=== PATIENT | male | born 1970 | race Caucasian/White ===

== ENCOUNTER 2020-10-02 23:30 | Inpatient (IN) | payer OTHER, SELFPAY ==
[~2020-10-02] VITALS: Ht 172.7 cm; Wt 115.7 kg
[2020-10-02 23:41] VITALS: BP 104/83
--- NOTE | 2020-10-03 00:30 | NUR ---
SEEN AND EXAMINED BY JENS WITH ORDERS AND CARRIED OUT
[2020-10-03 01:28] LABS: HEMATOCRIT 46.9 % (36-52); HEMOGLOBIN 16.2 g/dL (12.0-18.0); LYMPHOCYTES # (AUTO) 0.8 K/uL (2.0-11.5); LYMPHOCYTES % (AUTO) 6.1 % (20.5-51.1); MEAN CORPUSCULAR HEMOGLOBIN 31 pg (27-31); MEAN CORPUSCULAR HGB CONC 35 g/dL (33-37); MEAN CORPUSCULAR VOLUME 88.4 fL (80-94); MONOCYTES # (AUTO) 0.8 K/uL (0.8-1.0); MONOCYTES % (AUTO) 6.1 % (1.7-9.3); NEUTROPHILS # (AUTO) 10.9 K/uL (1.8-7.7); NEUTROPHILS % (AUTO) 87.8 % (42.2-75.2); PLATELET COUNT (AUTO) 317 K/uL (140-450); RED CELL DISTRIBUTION WIDTH 13.2 % (11.6-13.7); WHITE BLOOD COUNT (AUTO) 12.4 K/uL (4.8-10.8)
[2020-10-03 01:44] LABS: ANION GAP 16.5 (8-16); CARBON DIOXIDE 25.4 mmol/L (21-32); CREATININE 1.1 mg/dL (0.6-1.3); TOTAL BILIRUBIN 0.8 mg/dL (0.0-1.0)
[2020-10-03 02:06] LABS: POTASSIUM 2.9 mmol/L (3.5-5.1)
--- NOTE | 2020-10-03 02:10 | NUR ---
EKG PERFORMED IN TENT WITH SCREEN. EKG READS SINUS TACHYCARDIA @ 108
[2020-10-03] MEDS ORDERED: POTASSIUM CHLORIDE 10 MEQ TABER PO ONE (02:30)
--- NOTE | 2020-10-03 02:35 | NUR ---
SWAB DONE AND SENT TO LAB
--- NOTE | 2020-10-03 02:40 | NUR ---
MEDICATED PER ERMDS ORDER , TOLERATED WELL.
--- NOTE | 2020-10-03 04:45 | NUR ---
ALL RESULTS BACK AND NOTED BY ERMD AND FOR ADMISSION.
[2020-10-03] MEDS ORDERED: ONDANSETRON 4 MG/2 ML VIAL IVP PRN (05:00)
[2020-10-03] MEDS ORDERED: MORPHINE SULFATE 2 MG/ML SYR IVP PRN (05:00)
--- NOTE | 2020-10-03 05:01 | NUR ---
Patient will be admitted to care of DR. PEÑA. Admited to MS BARNES. room. Belongings list completed.
[2020-10-03] MEDS ORDERED: cefTRIAXone 1,000 MG VIAL ONE (08:38)
[2020-10-03] MEDS: NACL 0.9% 1,000 ML IV SCH (08:48)
[2020-10-03] MEDS ORDERED: DEXAMETHASONE 4 MG/ML VIAL IVP SCH (09:00)
[2020-10-03] MEDS ORDERED: AZITHROMYCIN 500 MG INJ VIAL IV ONE (09:26)
[2020-10-03] MEDS: ENOXAPARIN 40 MG/0.4 ML SYR SUBQ SCH (09:33)
[2020-10-03] MEDS: AZITHROMYCIN 500 MG in DEXTROSE 5% 250 ML IV SCH (09:36)
--- NOTE | 2020-10-03 09:50 | NUR ---
Patient states he is feeling febrile at this time. Temp taken 100.5 at this time. Pt will be provided with tylenol
--- NOTE | 2020-10-03 10:06 | NUR ---
PATIENT HAS BEEN SCREENED AND CATEGORIZED LOW NUTRITION RISK. PATIENT WILL BE SEEN WITHIN 7 DAYS OF ADMISSION. 10/10/[address]
[2020-10-03] MEDS: DEXAMETHASONE 4 MG/ML VIAL IVP SCH (10:13)
--- NOTE | 2020-10-03 11:51 | NUR ---
Resting in chair seated upright, awake and alert. No c/o pain at this time. WIll continue to monitor
--- NOTE | 2020-10-03 14:13 | NUR ---
Patient placed on 15L Non rebreather at this time due to O2 desaturation
[2020-10-03] MEDS ORDERED: PHARMACY TO DOSE MC PRN (17:25)
[2020-10-03] MEDS ORDERED: remdesivir CLINICAL MONITORING 1 EA MISC MC PRN (17:30)
[2020-10-03] MEDS ORDERED: REMDESIVIR (EUA) 200 MG in NACL 0.9% 100 ML IV ONE (18:00)
[2020-10-04] MEDS: NACL 0.9% 1,000 ML IV SCH ×2 (08:30→22:29)
[2020-10-04] MEDS: ENOXAPARIN 40 MG/0.4 ML SYR SUBQ SCH (10:28)
[2020-10-04] MEDS: ASPIRIN 81 MG TAB.CHEW PO SCH (10:31)
--- NOTE | 2020-10-04 10:43 | NUR ---
Remdesevir not given last night to patient. Pharmacy made aware.
--- NOTE | 2020-10-04 11:30 | NUR ---
RECEIVED PATIENT FROM PREVIOUS SHIFT, SITTING ON CHAIR, AWAKE,ALERT, ORIENTED X4, WITH O2 AT 12L/MIN VIA NC, SATURATING AT 90-91 %, MILD SOB NOTED BUT ABLE TO VERBALIZED. WITH IV CANNULA G20 AT LEFT AC ON SALINE LOCK NOTED. CONTINUE MONITOR.
[2020-10-04 12:04] LABS: BASOPHILS % (AUTO) 0.2 % (0.0-2.0); HEMATOCRIT 45.2 % (36-52); HEMOGLOBIN 15.7 g/dL (12.0-18.0); LYMPHOCYTES # (AUTO) 0.9 K/uL (2.0-11.5); LYMPHOCYTES % (AUTO) 5.9 % (20.5-51.1); MEAN CORPUSCULAR HEMOGLOBIN 31 pg (27-31); MEAN CORPUSCULAR HGB CONC 35 g/dL (33-37); MEAN CORPUSCULAR VOLUME 88.7 fL (80-94); MONOCYTES # (AUTO) 1.2 K/uL (0.8-1.0); MONOCYTES % (AUTO) 8.6 % (1.7-9.3); NEUTROPHILS # (AUTO) 12.2 K/uL (1.8-7.7); NEUTROPHILS % (AUTO) 85.3 % (42.2-75.2); PLATELET COUNT (AUTO) 438 K/uL (140-450); RED CELL DISTRIBUTION WIDTH 13.6 % (11.6-13.7); WHITE BLOOD COUNT (AUTO) 14.3 K/uL (4.8-10.8)
[2020-10-04 12:12] LABS: ANION GAP 14.1 (8-16); CARBON DIOXIDE 26.5 mmol/L (21-32); CREATININE 1.1 mg/dL (0.6-1.3); MAGNESIUM 2.8 mg/dL (1.8-2.4); POTASSIUM 3.6 mmol/L (3.5-5.1); TOTAL BILIRUBIN 0.7 mg/dL (0.0-1.0)
[2020-10-04 12:14] LABS: BILIRUBIN,DIRECT 0.2 mg/dL (0.0-0.3); TOTAL BILIRUBIN 0.6 mg/dL (0.0-1.0)
[2020-10-04] MEDS: DEXAMETHASONE 4 MG/ML VIAL IVP SCH (12:28)
--- NOTE | 2020-10-04 12:28 | NUR ---
DUE DEXAMETHASONE 6MG IV DAILY GIVEN Addendum: 10/04/20 at 1259 by Logan Edmonds RN LUNCH SERVED, ABLE TO FEED HIMSELF
--- NOTE | 2020-10-04 14:17 | NUR ---
STILL ON O2 AT 12L/MIN VIA NC, NOT IN DISTRESS NOTED
--- NOTE | 2020-10-04 16:45 | NUR ---
REC'D PT FROM ER NURSE, PT ABLE TO WALK FROM WHEELCHAIR TO BED, ON 15L NRB, IV ACCESS L.AC 22 SL. STABLE B/P 125/74, RR22, OXYGEN SATURATION 90%. TEMP 98.2.
[2020-10-04] MEDS ORDERED: REMDESIVIR (EUA) 100 MG in NACL 0.9% 100 ML IV SCH (17:00)
--- NOTE | 2020-10-04 17:05 | NUR ---
SHIFTED TO TELEMETRY PER WHEELCHAIR ACCOMPANIED BY MS. PORTILLO,CHARGE NURSE.
--- NOTE | 2020-10-04 17:15 | NUR ---
Patient will be admitted to care of [facility]. Admited to tele. Will go to room 105b. Belongings list completed. Report to [facility] nurse.
--- NOTE | 2020-10-04 18:00 | NUR ---
SPOKE TO RESPIRATORY THERAPIST RE: PT SATURATION OF 88%, STATED FOR COVID PATIENTS IT WILL BE OKAY TO MAINTAIN AT 88 D/T COVID INFECTION, IF PATIENT SATURATION DECREASED, CONTACT RESPIRATORY FOR POSSIBLE ADDITION OF NC ALONG WITH NRB, ATTEMPT PRONING IF PT CAN TOLERATE IT
[2020-10-04] MEDS: LORazepam 2 MG/ML VIAL IVP PRN (18:41)
--- NOTE | 2020-10-04 19:04 | NUR ---
CALLED TO BEDSIDE PT DESAT HIGH 70s PT APPEARED ANXIOUS AND CONFIRMED HE HAS ANXIETY. RN IS AWARE AND IS PENDING ORDER. PT WAS RE-ASSURED AND NRB WAS EXCHANGED FOR NEW ONE. PT SPO2 UPON DEPARTURE WAS 86% AND HR 105 W/ f 27. PT APPEARS A LITTLE CALMER WE WILL CONTINUE TO MONITOR. PT INFORMED ME HE IS COVID + AND HAS FAMILY MEMBERS THAT TESTED POSITIVE WELL.
--- NOTE | 2020-10-04 19:50 | NUR ---
ENDORSED PT TO THERAPIST RADIATION NURSE, PT STABLE. ON 15L NRB
--- NOTE | 2020-10-04 19:51 | NUR ---
RECEIVED BEDSIDE ENDORSEMENT FROM AM SHIFT RN. AOX4, NO SOB, ON 15 L NRB, NO DISTRESS, ISO PRECAUTION IN PLACE, SAFETY MEASURES IN PLACE, PLAN OF CARE DISCUSSED, CALL LIGHT WITHIN REACH.
[2020-10-04 20:00] VITALS: BP 105/69
[2020-10-05] VITALS: BP 107/72
[2020-10-05 04:00] VITALS: BP 108/75
[2020-10-05] MEDS ORDERED: cefTRIAXone 1,000 MG VIAL ONE (04:35)
--- NOTE | 2020-10-05 04:45 | NUR ---
ROCEPHIN IV GIVEN, NO A/R NOTED, CALL LIGHT WITHIN REACH.
[2020-10-05] MEDS ORDERED: AZITHROMYCIN 500 MG INJ VIAL IV ONE (05:04)
[2020-10-05] MEDS: AZITHROMYCIN 500 MG in DEXTROSE 5% 250 ML IV SCH (05:56)
--- NOTE | 2020-10-05 06:00 | NUR ---
ZITHROMAX IV GIVEN ORDERED, NO A/R NOTED, CALL LIGHT WITHIN REACH.
--- NOTE | 2020-10-05 07:45 | NUR ---
PT STABLE, NO ACUTE CHANGES THE WHOLE SHIFT, ENDORSED TO AM SHIFT RN.
[2020-10-05 08:00] VITALS: BP 117/71
[2020-10-05] MEDS: DEXAMETHASONE 4 MG/ML VIAL IVP SCH (08:51)
[2020-10-05] MEDS: ASPIRIN 81 MG TAB.CHEW PO SCH (08:51)
[2020-10-05] MEDS: ENOXAPARIN 40 MG/0.4 ML SYR SUBQ SCH (09:01)
[2020-10-05 09:51] LABS: ALBUMIN 2.6 g/dL (3.4-5.0); BILIRUBIN,DIRECT 0.1 mg/dL (0.0-0.3); TOTAL BILIRUBIN 0.4 mg/dL (0.0-1.0)
[2020-10-05] MEDS ORDERED: remdesivir CLINICAL MONITORING 1 EA MISC MC PRN (12:00)
[2020-10-05] MEDS ORDERED: REMDESIVIR (EUA) 200 MG in NACL 0.9% 100 ML IV SCH (13:00)
[2020-10-05] MEDS: NACL 0.9% 1,000 ML IV SCH (14:16)
--- NOTE | 2020-10-05 15:00 | NUR ---
Notified Alize from blood bank that convalescent plasma consents are ready. Per Alize, will call RN when plasma is ready for pick-up.
[2020-10-05 16:00] VITALS: BP 138/70
[2020-10-05 17:17] LABS: BASOPHILS # (AUTO) 0.1 K/uL (0.00-0.22); BASOPHILS % (AUTO) 0.8 % (0.0-2.0); HEMATOCRIT 44.2 % (36-52); HEMOGLOBIN 14.9 g/dL (12.0-18.0); LYMPHOCYTES # (AUTO) 0.8 K/uL (2.0-11.5); LYMPHOCYTES % (AUTO) 4.7 % (20.5-51.1); MEAN CORPUSCULAR HEMOGLOBIN 31 pg (27-31); MEAN CORPUSCULAR HGB CONC 34 g/dL (33-37); MEAN CORPUSCULAR VOLUME 91.2 fL (80-94); MONOCYTES % (AUTO) 6.3 % (1.7-9.3); NEUTROPHILS # (AUTO) 14.2 K/uL (1.8-7.7); NEUTROPHILS % (AUTO) 88.2 % (42.2-75.2); PLATELET COUNT (AUTO) 439 K/uL (140-450); RED BLOOD CELL COUNT(AUTO) 4.84 MIL/uL (4.20-6.10); RED CELL DISTRIBUTION WIDTH 13.3 % (11.6-13.7); WHITE BLOOD COUNT (AUTO) 16.1 K/uL (4.8-10.8)
[2020-10-05 17:54] LABS: ALBUMIN 2.6 g/dL (3.4-5.0); ANION GAP 11.5 (8-16); CARBON DIOXIDE 28.8 mmol/L (21-32); CREATININE 0.9 mg/dL (0.6-1.3); POTASSIUM 3.3 mmol/L (3.5-5.1); TOTAL BILIRUBIN 0.4 mg/dL (0.0-1.0)
[2020-10-05 20:00] VITALS: BP 135/76
--- NOTE | 2020-10-05 20:05 | NUR ---
A,A&OX4.RESP.UNLABORED W/O2.LUNGS DIMINISHED.NO DISTRESS NOTED AT PRESENT TIME.WILL CONT.MONITORING.CALL LIGHT HUE BLAKE.
[2020-10-05] MEDS: APIXABAN 2.5 MG TAB PO SCH (20:54)
[2020-10-06] MEDS ORDERED: guaiFENesin 20 MG/ML UDC PO PRN (02:30)
[2020-10-06] MEDS ORDERED: guaiFENesin DM 200/20 MG-10 ML 10 ML UDC ONE (02:40)
[2020-10-06] MEDS: NACL 0.9% 1,000 ML IV SCH ×2 (05:11→17:21)
[2020-10-06] MEDS: AZITHROMYCIN 500 MG in DEXTROSE 5% 250 ML IV SCH (05:41)
[2020-10-06 06:00] VITALS: BP 140/91
[2020-10-06] MEDS: ACETAMINOPHEN 325 MG TAB PO PRN (07:04)
[2020-10-06 08:00] VITALS: BP 127/73
--- NOTE | 2020-10-06 08:22 | NUR ---
HAD FEVER EARLIER GAVE HIM TYLENOL.WILL RECHECK LATER.SCHEDULE MEDS GIVEN.CONDITION STABLE.IV WAS OUT.REINSERT ANOTHER ONE W/#24 ALISA LT HAND.
[2020-10-06] MEDS: DEXAMETHASONE 4 MG/ML VIAL IVP SCH (09:00)
[2020-10-06] MEDS: ASPIRIN 81 MG TAB.CHEW PO SCH (09:00)
[2020-10-06] MEDS: APIXABAN 2.5 MG TAB PO SCH ×2 (09:01→21:00)
--- NOTE | 2020-10-06 09:16 | NUR ---
SCHEDULED MEDICATIONS DUE GIVEN. WILL CONTINUE TO MONITOR.
[2020-10-06] MEDS: guaiFENesin DM 200/20 MG-10 ML 10 ML UDC PO PRN ×3 (09:38→19:24)
[2020-10-06 10:04] LABS: BASOPHILS # (AUTO) 0.1 K/uL (0.00-0.22); BASOPHILS % (AUTO) 0.8 % (0.0-2.0); HEMATOCRIT 41.7 % (36-52); HEMOGLOBIN 14.5 g/dL (12.0-18.0); LYMPHOCYTES # (AUTO) 0.9 K/uL (2.0-11.5); LYMPHOCYTES % (AUTO) 5.2 % (20.5-51.1); MEAN CORPUSCULAR HEMOGLOBIN 31 pg (27-31); MEAN CORPUSCULAR HGB CONC 35 g/dL (33-37); MEAN CORPUSCULAR VOLUME 89.2 fL (80-94); MONOCYTES # (AUTO) 0.9 K/uL (0.8-1.0); MONOCYTES % (AUTO) 5.1 % (1.7-9.3); NEUTROPHILS # (AUTO) 15.3 K/uL (1.8-7.7); NEUTROPHILS % (AUTO) 88.9 % (42.2-75.2); PLATELET COUNT (AUTO) 507 K/uL (140-450); RED BLOOD CELL COUNT(AUTO) 4.67 MIL/uL (4.20-6.10); RED CELL DISTRIBUTION WIDTH 13.3 % (11.6-13.7); WHITE BLOOD COUNT (AUTO) 17.2 K/uL (4.8-10.8)
--- NOTE | 2020-10-06 12:06 | NUR ---
DISCHARGE PLANNING: RECEIVED A CALL FROM QUINN FAITH OF [facility], STATING THAT THEY WILL NOT FOLLOW THIS PATIENT ANY LONGER DUE IT IS MORE THAN 30 [place] FROM [place] AND HEALTH PLAN IS AT RISK. YAMILA SANTANALAUNDRY MANAGER MADE AWARE. PER YAMILA WE HAVE AUTH FROM [facility] ALREADY. Addendum: 10/06/20 at 1236 by Bernice Connors CM CONTACTED QUINN RANDLE [phone] AT [facility], NO ANSWER. LEFT MESSAGE. WILL FOLLOW UP. Addendum: 10/13/20 at 1548 by Bernice Connors CM PATIENT TODAY.
[2020-10-06] MEDS: REMDESIVIR (EUA) 100 MG in NACL 0.9% 100 ML IV SCH (12:58)
[2020-10-06] MEDS: LORazepam 2 MG/ML VIAL IVP PRN ×2 (14:53→19:24)
--- NOTE | 2020-10-06 14:53 | NUR ---
PATIENT COMPLAINS OF COUGH AND ANXIETY, ATIVAN AND ROBITUSSIN GIVEN AT THIS TIME. WILL CONTINUE TO MONITOR.
[2020-10-06 15:21] LABS: ALBUMIN 2.6 g/dL (3.4-5.0); BILIRUBIN,DIRECT 0.2 mg/dL (0.0-0.3); TOTAL BILIRUBIN 0.5 mg/dL (0.0-1.0)
[2020-10-06 16:00] VITALS: BP 135/86
--- NOTE | 2020-10-06 17:39 | NUR ---
RT PLACED PATIENT PLACED ON HIGH FLOW AT THIS TIME DUE TO RESPIRATIONS AROUND 40 AND O2 SAT AT 80-82% ON NRB 15L/MIN AND NC 6L/MIN. PER DR. VASQUES, PATIENT IS OKAY TO BE ON HIGH FLOW. WILL CONTINUE TO MONITOR.
--- NOTE | 2020-10-06 19:20 | NUR ---
GAVE REPORT TO CHOCOLATE REFINING ROLLER NURSE FOR CONTINUITY OF CARE. PATIENT IN STABLE CONDITION.
--- NOTE | 2020-10-06 19:30 | NUR ---
RECEIVED REPORT OF PT AT BEDSIDE.O2 SAT IS LOW.AND RESP IS SLIGHTLY HARD EVEN W/HIGH FLOW O2.CALLED RT.WILL CONT.MONITORING.
[2020-10-06] MEDS ORDERED: PROPOFOL 1000 MG/100 ML PREMIX 100 ML IV ONE (20:53)
--- NOTE | 2020-10-06 20:55 | NUR ---
PATIENT INTUBATED BY ER DOC AT 7.5 @25CM. VENT PLUGGED INTO RED OUTLET. BMV AT BEDSIDE.ETT SECURED. ALARMS SET AND AUDIBLE. PATIENT PLACED ON DOCUMENTED VENT SETTINGS. ER PHYSICIAN AWARE. WILL CONT TO MONITOR.
[2020-10-06] MEDS: PROPOFOL 1000 MG/100 ML PREMIX 100 ML IV PRN (21:00)
--- NOTE | 2020-10-06 21:10 | NUR ---
PT'S O2 SAT WAS LOW 76-80.TRY TO PUT BIPAP BUT PT DIDN'T TOLERATED.CALLED RAPID RESPONSE SO DID ABG STAT RESULT WAS ABNORMAL.FINALLY ER MD CAME AND INTUBATED PT.SO STATUS CHANGED TO ICU.PT TOLERATED INTUBATION WELL AND NOW CONDITION IS STABLE.
--- NOTE | 2020-10-06 21:30 | NUR ---
ADMITTING PHYSICIAN CALLED AND UPDATED ON PT CHANGE OF CONDITION. PT NOW INTUBATED AND ICU STATUS, ORDERS RECEIVED, VERBAL VERIFICATION TO INPUT ORDERS. WILL CARRY OUT.
--- NOTE | 2020-10-06 21:51 | NUR ---
CALLED PT'S FAMILY AND TALKED W/ HIS SON ANN #[phone] AND INFORMED HIM THAT WE INTUBATED PT AND CHANGED HIS STATUS TO ICU.
--- NOTE | 2020-10-06 21:59 | NUR ---
HIS SON CALLED BACK AND ASKED MORE QUESTIONS ABOUT HIS DAD.ANSWERED ALL HIS QUESTION.HE VERBALIZED UNDERSTANDINGS.
[2020-10-06 22:00] VITALS: BP 187/72
--- NOTE | 2020-10-06 22:15 | NUR ---
RECEIVED ENDORSEMENT FROM [facility] NURSE, PT NEWLY INTUBATED, AC VC FI02 100%, TV 500, RATE 20, PEEP 10. OGT IN PLACE, CLOSED TO PATIENT. CHATMAN IN PLACE, INSERTED BY ER NURSE, DRAINING HAZY TERRI URINE. RIGHT FA 18G, INFUSING PROPOFOL, RASS -3, DRY WEIGHT 94.8 KG. LEFT WRIST 24G SL, RIGHT FA 24G SL. SKIN WARM AND DRY, INTACT. AFEBRILE. FLACC 0. WITH ASSIST FROM HEALTH UNIT CLERK, CLEANED AND CHANGED ALL GOWNS AND LINENS, ALL LINES INTACT AND ETT INTACT. SAFETY MEASURES IN PLACE. WILL CONTINUE TO MONITOR.
[2020-10-06] MEDS ORDERED: fentaNYL citrate 0.05 MG/ML VIAL ONE (22:30)
[2020-10-06 23:00] VITALS: BP 177/77
[2020-10-06] MEDS: fentaNYL citrate 1 MG in NACL 0.9% 80 ML IV PRN (23:00)
--- NOTE | 2020-10-06 23:24 | NUR ---
ER PHYSICIAN CALLED TO PULL BACK 1CM. ETT NOW AT 24 CM GUM. VOLUMES REMAIN GOOD. WILL CONT TO MONITOR
[2020-10-07] VITALS (25 sets, daily range): BP systolic 96–133; BP diastolic 58–77
--- NOTE | 2020-10-07 00:30 | NUR ---
PT's SON CALLED FOR UPDATES ON CHANGE OF CONDITION. ANSWERED ALL QUESTIONS AND MADE AWARE OF NEW ICU STATUS. PT ASKED IF HE CAN ADD ON ONLY ONE MORE FAMILY MEMBER TO BE ADDED IN LIST FOR UPDATES BECAUSE SOMETIMES HE IS UNABLE TO ANSWER THE PHONE. ON FACESHEET: SON-ISABELA ESTEVEZ ADDED FAMILY MEMBER: BROTHER IN [phone]
--- NOTE | 2020-10-07 01:00 | NUR ---
CONVALESCENT PLASMA TRANSFUSION STARTED. WILL MONITOR FOR REACTIONS.
--- NOTE | 2020-10-07 01:19 | NUR ---
SPOKE WITH PATIENTS SON ON PHONE FOR UPDATES, QUESTIONED PT's SON THAT PRIMARY NURSE JUST GAVE AN UPDATE NOT EVEN AN HOUR AGO, PT's SON SAID "OH THAT WAS MY RELATIVE THAT WASN'T ME". CLARIFIED TO SON THE HIPPA VIOLATIONS AND MOVING FORWARD, NO ONE ELSE IS ALLOWED TO CALL FOR UPDATES. PASSWORD GIVEN TO VERIFY SON's IDENTITY: [id number] [id number] PT's SON IS IN AGREEMENT AND AWARE THAT MULTIPLE FAMILY MEMBERS CALLING IS MORE TIME SPENT ANSWERING THEIR CONCERNS AND TAKING AWAY FROM PATIENT CARE AND ALSO VIOLATING HIPPA POLICIES. PT SON UPDATED ON CONDITION, AND ANSWERED ALL QUESTIONS.
--- NOTE | 2020-10-07 02:15 | NUR ---
PT STARTING TO DESAT. RT CALLED. ABG's DRAWN. INCREASED PEEP, CHANGED PULSE OX, PT STILL SATTING IN 60's. ABG RESULTS STILL BAD POST INTUBATION. PT PRONED. NO INCIDENT NOTED, ETT INTACT, IV LINES INTACT. PREPLEATER IN PLACE. AC VC FI02 100%, TV 500, RATE 20, PEEP 16. PT SP02 CLIMBING TO 80's. WILL CONTINUE TO MONITOR. DR. JIMENEZ MADE AWARE.
--- NOTE | 2020-10-07 03:00 | NUR ---
PLACED PT PRONE POSITION AT THIS TIME. ETT IS SECURED AND PATENT. TITRATED PEEP TO +16, PT TOLERATING WELL. SPO2 85% AND PEAK PRESSURES REMAIN BELOW 45.
[2020-10-07] MEDS: PROPOFOL 1000 MG/100 ML PREMIX 100 ML IV PRN ×5 (03:30→18:00)
[2020-10-07] MEDS ORDERED: fentaNYL citrate 0.05 MG/ML VIAL ONE (03:44)
[2020-10-07] MEDS: fentaNYL citrate 1 MG in NACL 0.9% 80 ML IV PRN (03:47)
--- NOTE | 2020-10-07 04:21 | NUR ---
PT REMAINS ON DOCUMENTED SETTINGS, ETT SECURED AND PATENT WITH NO DISTRESS, ALARMS ON AND FUNCTIONING, VENT PLUGGED INTO RED OUTLET.
[2020-10-07] MEDS: AZITHROMYCIN 500 MG in DEXTROSE 5% 250 ML IV SCH (05:36)
--- NOTE | 2020-10-07 06:30 | NUR ---
PEAK PRESSURES STARTING TO INCREASE TO OVER 50-60, RT MADE AWARE, SLOWLY TITRATING PEEP DOWN. PATIENT ETT TO VENT, AC VC FI02 100%, TV 500, RATE 20, PEEP 12. SP02 94%, BP WITHIN RANGE, HR ELEVATED 120's. RESPIRATIONS IN 20's. RASS -3, FLACC 0, REVERSE [place], SIDE RAILS UP. WILL CONTINUE TO MONITOR.
--- NOTE | 2020-10-07 07:21 | NUR ---
RECEIVED BEDSIDE REPORT FROM TELESALES ADVISOR NURSE MARY BOCANEGRA, PT SEDATED RASS -3, ON PRONE POSITION, ETT TO VENT, AC/PC FIO2 100%, PEEP 12, RATE 20, NO SOB NOTED, SATURATING @ 95%, IV TO R UA 18G, L WRIST 24G, LFA 24G, PATENT INTACT, INFUSING NS @ 100ML/HR. PROPOFOL @ 50MCG/KG/HR, FENTANYL @ 2MCG/KG/HR, INFUSING WELL. CHATMAN CATH IN PLACE, OGT IN PLACE, INITIAL ASSESSMENT DONE, ALL SAFETY PRECAUTION MET, CALL LIGHT WITHIN REACH, WILL CONTINUE TO MONITOR.
[2020-10-07 08:47] LABS: HEMATOCRIT 39.8 % (36-52); HEMOGLOBIN 13.4 g/dL (12.0-18.0); MEAN CORPUSCULAR HEMOGLOBIN 31 pg (27-31); MEAN CORPUSCULAR HGB CONC 34 g/dL (33-37); MEAN CORPUSCULAR VOLUME 91.1 fL (80-94); PLATELET COUNT (AUTO) 480 K/uL (140-450); RED BLOOD CELL COUNT(AUTO) 4.37 MIL/uL (4.20-6.10); RED CELL DISTRIBUTION WIDTH 13.2 % (11.6-13.7); WHITE BLOOD COUNT (AUTO) 19.5 K/uL (4.8-10.8)
[2020-10-07 08:55] LABS: ALBUMIN 2.2 g/dL (3.4-5.0); BILIRUBIN,DIRECT 0.3 mg/dL (0.0-0.3); TOTAL BILIRUBIN 0.6 mg/dL (0.0-1.0)
[2020-10-07] MEDS: DEXAMETHASONE 4 MG/ML VIAL IVP SCH (08:55)
[2020-10-07] MEDS: ASPIRIN 81 MG TAB.CHEW PO SCH (08:56)
[2020-10-07] MEDS: APIXABAN 2.5 MG TAB PO SCH ×2 (08:58→20:31)
--- NOTE | 2020-10-07 09:30 | NUR ---
FOUND PT ON VOLUME CONTROL MODE, PEAK PRESSURES WERE IN THE 60s, SWITCHED PT TO PC 25 RR 20 PEEP 12 100% AND CALLED DR VASQUES TO NOTIFY THE CHANGES.
[2020-10-07] MEDS: ACETAMINOPHEN 325 MG TAB PO PRN (10:27)
[2020-10-07] MEDS: fentaNYL citrate 2.5 MG in NACL 0.9% 200 ML IV PRN (10:28)
[2020-10-07] MEDS ORDERED: ACETAMINOPHEN 650 MG SUPP RC ONE (10:43)
[2020-10-07] MEDS ORDERED: ACETAMINOPHEN 650 MG SUPP RC PRN (10:50)
--- NOTE | 2020-10-07 10:51 | NUR ---
PT OGT UNABLE TO FLUSH, OGT TAKEN OUT WILL PUT ONE IN WHEN PT IS IN SUPINE POSITION, PT TEMP 101.1, RECTAL TYLENOL GIVEN, WILL CONTINUE TO MONITOR.
--- NOTE | 2020-10-07 10:56 | NUR ---
10/07/2020 RD INITIAL ASSESSMENT COMPLETED PLEASE REFER TO NUTRITION ASSESSMENT UNDER CARE ACTIVITY FOR ESTIMATED NUTRITIONAL NEEDS. RECOMMEND VITAL AF 1.2 @ 180 ML/HR X 8 HOURS + PROSOURCE BID TUBE FEEDING AT GOAL RATE WILL PROVIDE 1296 KCALS AND 60 GM PRO/DAY. WITH PROSOURCE BID & PROPOFOL @ 28.44 ML/DAY, PT WILL BE RECEIVING 2167 KCALS AND 90 GM PRO/DAY TO MEET 100% ESTIMATED ENERGY AND 75% ESTIMATED PROTEIN NEEDS PER DAY WHILE PT IS NOT RECEIVING FEEDING AT GOAL RATE, VOLUME MAY NOT BE ADEQUATE TO PROVIDE SUFICCIENT VITAMINS/MINERALS, RECOMMEND MULTIVITAMIN DAILY RD TO FOLLOW-UP IN 2-3 DAYS PATIENT IS HIGH RISK. JOSLYN ULLOA, RD
[2020-10-07] MEDS: NACL 0.9% 1,000 ML IV SCH ×2 (11:16→22:42)
[2020-10-07 14:00] LABS: ALBUMIN 2.3 g/dL (3.4-5.0); ANION GAP 15.8 (8-16); CARBON DIOXIDE 24.8 mmol/L (21-32); CREATININE 1.1 mg/dL (0.6-1.3); POTASSIUM 3.6 mmol/L (3.5-5.1); TOTAL BILIRUBIN 0.6 mg/dL (0.0-1.0)
[2020-10-07] MEDS: REMDESIVIR (EUA) 100 MG in NACL 0.9% 100 ML IV SCH (14:13)
[2020-10-07 14:48] LABS: LYMPHOCYTES % (MANUAL) 4 % (20-46); MONOCYTES % (MANUAL) 2 % (5-12)
--- NOTE | 2020-10-07 19:20 | NUR ---
ENDORSED PT TO INTERNATIONAL ACCOUNT EXECUTIVE NURSE FOR CONTINUOS OF CARE
--- NOTE | 2020-10-07 19:30 | NUR ---
RECEIVED REPORT FROM DAY SHIFT RN; PT SEDATED ON PROPOFOL DRIP @ 50 MCG/KG/MIN. FENTANYL DRIP @ 2 MCG/KG/HR. ETT TO VENT IN PRONE POSITION ON 100% FIO2, PEEP 12. ABD SOFT NON DISTENDED, CHATMAN CATH DRAINING TERRI URINE. SKIN INTACT. PIVS TO L UPPER ARM, R FAX2. BED LOCKED IN LOWEST POSITION.
--- NOTE | 2020-10-07 22:30 | NUR ---
PT PLACED IN SUPINE POSITION. CHG BATH GIVEN, LINEN CHANGED
[2020-10-08] VITALS (22 sets, daily range): BP systolic 111–160; BP diastolic 69–82
[2020-10-08] MEDS: fentaNYL citrate 2.5 MG in NACL 0.9% 200 ML IV PRN ×2 (00:35→12:15)
[2020-10-08] MEDS: PROPOFOL 1000 MG/100 ML PREMIX 100 ML IV PRN ×5 (00:36→18:02)
--- NOTE | 2020-10-08 01:27 | NUR ---
RECEIVED REPORT FROM DAY SHIFT RN; PT SEDATED ON PROPOFOL DRIP @ 50 MCG/KG/MIN. FENTANYL DRIP @ 2 MCG/KG/HR. ETT TO VENT IN PRONE POSITION ON 100% FIO2, PEEP 12. ABD SOFT NON DISTENDED, CHATMAN CATH DRAINING TERRI URINE. SKIN INTACT. PIVS TO L UPPER ARM, R FAX2. BED LOCKED IN LOWEST POSITION. Addendum: 10/08/20 at 0129 by Facundo Neely RN WRONG TIME ENTRY TO BE ENTERED @193
[2020-10-08] MEDS: AZITHROMYCIN 500 MG in DEXTROSE 5% 250 ML IV SCH (05:29)
--- NOTE | 2020-10-08 07:20 | NUR ---
RECEIVED BEDSIDE REPORT FROM HATCHERY MANAGER NURSE MARY BOCANEGRA, PT SEDATED RASS -3, ON PRONE POSITION, ETT TO VENT, AC/PC FIO2 100%, PEEP 12, RATE 20, NO SOB NOTED, SATURATING @ 95%, IV TO R UA 18G, L WRIST 24G, LFA 24G, PATENT INTACT, INFUSING NS @ 100ML/HR. PROPOFOL @ 50MCG/KG/HR, FENTANYL @ 2MCG/KG/HR, INFUSING WELL. CHATMAN CATH IN PLACE, OGT IN PLACE, INITIAL ASSESSMENT DONE, ALL SAFETY PRECAUTION MET, CALL LIGHT WITHIN REACH, WILL CONTINUE TO MONITOR.
--- NOTE | 2020-10-08 07:30 | NUR ---
REPORT GIVEN TO DAY SHIFT FOR CONTINUITY OF CARE
[2020-10-08] MEDS: ASPIRIN 81 MG TAB.CHEW PO SCH (09:27)
[2020-10-08] MEDS: APIXABAN 2.5 MG TAB PO SCH ×2 (09:29→21:16)
[2020-10-08] MEDS: DEXAMETHASONE 4 MG/ML VIAL IVP SCH (09:30)
[2020-10-08 10:26] LABS: BASOPHILS # (AUTO) 0.2 K/uL (0.00-0.22); BASOPHILS % (AUTO) 0.7 % (0.0-2.0); EOSINOPHILS # (AUTO) 0.1 K/uL (0-0.4); EOSINOPHILS % (AUTO) 0.3 % (0.0-4.0); HEMATOCRIT 39.3 % (36-52); HEMOGLOBIN 13.3 g/dL (12.0-18.0); LYMPHOCYTES # (AUTO) 0.5 K/uL (2.0-11.5); MEAN CORPUSCULAR HEMOGLOBIN 31 pg (27-31); MEAN CORPUSCULAR HGB CONC 34 g/dL (33-37); MEAN CORPUSCULAR VOLUME 92.5 fL (80-94); MONOCYTES # (AUTO) 0.5 K/uL (0.8-1.0); MONOCYTES % (AUTO) 2.1 % (1.7-9.3); NEUTROPHILS # (AUTO) 23.1 K/uL (1.8-7.7); NEUTROPHILS % (AUTO) 94.9 % (42.2-75.2); PLATELET COUNT (AUTO) 405 K/uL (140-450); RED BLOOD CELL COUNT(AUTO) 4.25 MIL/uL (4.20-6.10); RED CELL DISTRIBUTION WIDTH 13.5 % (11.6-13.7); WHITE BLOOD COUNT (AUTO) 24.3 K/uL (4.8-10.8)
[2020-10-08 10:34] LABS: ANION GAP 14.5 (8-16); CARBON DIOXIDE 28.5 mmol/L (21-32); CREATININE 0.9 mg/dL (0.6-1.3); TOTAL BILIRUBIN 0.5 mg/dL (0.0-1.0)
[2020-10-08] MEDS: DEXTROSE 5% 1,000 ML IV SCH (11:45)
[2020-10-08] MEDS ORDERED: fentaNYL citrate 0.05 MG/ML VIAL ONE (12:02)
--- NOTE | 2020-10-08 14:39 | NUR ---
TUBE FEED RECOMMENDATIONS PER SAHRA CAMERON PT HAVING A LOT OF RESIDUALS D/T HIGH TF RATE OF 180 ML/HR RECOMMEND VITAL AF AT 145 ML/HR X 8 HR WITH PROSOURCE BID. THIS WILL PROVIDE A TOTAL OF 1512 KCAL AND 117 G OF PROTEIN MEETING 98% OF ESTIMATED KCAL NEEDS AND 96% OF ESTIMATED PROTEIN NEEDS
--- NOTE | 2020-10-08 19:00 | NUR ---
PT FOUND RESTING COMFORTABLY ON AC/PC PIP[25 f 20 PEEP 12 , ALARMS ARE SET AND AUDIBLE AMBUBAG IS PRESENT AT BEDSIDE ETT IS A 7.5 SECURED @24CM PT IN NO OBVIOUS DISTRESS AT THIS TIME.
--- NOTE | 2020-10-08 19:35 | NUR ---
PT SEDATED RASS-3 ON PROPOFOL DRIP @ 50 MCG/KG/MIN. FENTANYL DRIP @ 2 MCG/KG/HR. ST 100S, ETT TO VENT IN SUPINE POSITION ON 100% FIO2, PEEP 12. ABD SOFT NON DISTENDED, CHATMAN CATH DRAINING TERRI URINE. SKIN INTACT. PIVS TO L UPPER ARM, R FAX2; PICC TO R UPPER ARM. BED LOCKED IN LOWEST POSITION.
--- NOTE | 2020-10-08 19:51 | NUR ---
ENDORSED PT TO MACHINE RIVETER NURSE FOR CONTINUOUS OF CARE
[2020-10-08] MEDS: FAMOTIDINE 20 MG/2 ML VIAL IV SCH (21:16)
[2020-10-09] VITALS (19 sets, daily range): BP systolic 113–152; BP diastolic 62–75
[2020-10-09] MEDS: DEXTROSE 5% 1,000 ML IV SCH ×2 (00:55→14:29)
[2020-10-09] MEDS ORDERED: CRUSHER, PILL MC ONE (02:55)
[2020-10-09] MEDS: HYDROcodone/APAP 5/325 MG 1 TAB TAB PO PRN (02:57)
[2020-10-09] MEDS: fentaNYL citrate 2.5 MG in NACL 0.9% 200 ML IV PRN ×2 (04:51→19:59)
[2020-10-09] MEDS: AZITHROMYCIN 500 MG in DEXTROSE 5% 250 ML IV SCH (05:00)
[2020-10-09 09:00] LABS: ALBUMIN 1.9 g/dL (3.4-5.0); ANION GAP 9.7 (8-16); CARBON DIOXIDE 31.8 mmol/L (21-32); CREATININE 0.9 mg/dL (0.6-1.3); POTASSIUM 4.5 mmol/L (3.5-5.1); TOTAL BILIRUBIN 0.4 mg/dL (0.0-1.0)
[2020-10-09] MEDS: DEXAMETHASONE 4 MG/ML VIAL IVP SCH (09:00)
[2020-10-09] MEDS: APIXABAN 2.5 MG TAB PO SCH (09:00)
[2020-10-09] MEDS: FAMOTIDINE 20 MG/2 ML VIAL IV SCH ×2 (09:00→20:55)
[2020-10-09] MEDS: ASPIRIN 81 MG TAB.CHEW PO SCH (09:00)
[2020-10-09 09:04] LABS: BASOPHILS % (AUTO) 0.2 % (0.0-2.0); HEMOGLOBIN 12.3 g/dL (12.0-18.0); LYMPHOCYTES # (AUTO) 0.4 K/uL (2.0-11.5); LYMPHOCYTES % (AUTO) 1.7 % (20.5-51.1); MEAN CORPUSCULAR HEMOGLOBIN 30 pg (27-31); MEAN CORPUSCULAR HGB CONC 33 g/dL (33-37); MEAN CORPUSCULAR VOLUME 91.6 fL (80-94); MONOCYTES # (AUTO) 0.7 K/uL (0.8-1.0); MONOCYTES % (AUTO) 2.7 % (1.7-9.3); NEUTROPHILS # (AUTO) 23.4 K/uL (1.8-7.7); NEUTROPHILS % (AUTO) 95.4 % (42.2-75.2); PLATELET COUNT (AUTO) 356 K/uL (140-450); RED BLOOD CELL COUNT(AUTO) 4.04 MIL/uL (4.20-6.10); RED CELL DISTRIBUTION WIDTH 13.5 % (11.6-13.7); WHITE BLOOD COUNT (AUTO) 24.5 K/uL (4.8-10.8)
[2020-10-09 09:12] LABS: MAGNESIUM 2.3 mg/dL (1.8-2.4); PHOSPHORUS 3.6 mg/dL (2.5-4.9)
[2020-10-09] MEDS: PROPOFOL 1000 MG/100 ML PREMIX 100 ML IV PRN ×4 (09:20→19:58)
--- NOTE | 2020-10-09 12:23 | NUR ---
PATIENT SEEN AND EVALUATED BY DR. CHILDS, PRONE, WILL BE STARTING ON LOVENOX TONIGHT. WILL CONTINUE WITH THE COVID TREATMENT. WILL MONITOR.
--- NOTE | 2020-10-09 14:00 | NUR ---
RECEIVED REPORT FROM SAHRA SHEFFIELD. PT IN BED, PRONE POSITION, SEDATED TO RASS -3. ETT TO VENT: ACPC 100% FIO2, RR 20, PEEP 12, NO SIGNS OF ACUTE DISTRESS NOTED. OG TUBE IN PLACE, FEEDING RUNNING TO GRAVITY. CHATMAN CATHETER IN PLACE, DRAINING TO GRAVITY. BAR PICC LINE, CLEAN DRY INTACT, INFUSING: PROPOFOL @ 50 MCG/KG/MIN, 5% DEXTROSE @ 75 ML/HR, FENTANYL @ 2 MCG/KG/HR. BED IN LOW POSITION, MANAGER DISH IN PLACE, SAFETY MEASURES IN PLACE.
--- NOTE | 2020-10-09 19:20 | NUR ---
ENDORSED PATIENT TO SWEET GOODS MACHINE OPERATOR NURSE FOR CONTINUITY OF CARE. PATIENT STABLE AT THIS TIME.
[2020-10-09] MEDS: ENOXAPARIN 120 MG/0.8 ML SYR SUBQ SCH (20:57)
[2020-10-10] VITALS (28 sets, daily range): BP systolic 118–167; BP diastolic 61–119
[2020-10-10] MEDS: PROPOFOL 1000 MG/100 ML PREMIX 100 ML IV PRN ×6 (00:29→17:11)
[2020-10-10] MEDS: DEXTROSE 5% 1,000 ML IV SCH (03:35)
[2020-10-10] MEDS: AZITHROMYCIN 500 MG in DEXTROSE 5% 250 ML IV SCH (05:00)
[2020-10-10 06:27] LABS: BASOPHILS % (AUTO) 0.2 % (0.0-2.0); HEMATOCRIT 38.3 % (36-52); HEMOGLOBIN 12.7 g/dL (12.0-18.0); LYMPHOCYTES # (AUTO) 0.4 K/uL (2.0-11.5); LYMPHOCYTES % (AUTO) 1.7 % (20.5-51.1); MEAN CORPUSCULAR HEMOGLOBIN 30 pg (27-31); MEAN CORPUSCULAR HGB CONC 33 g/dL (33-37); MEAN CORPUSCULAR VOLUME 91.7 fL (80-94); MONOCYTES # (AUTO) 0.5 K/uL (0.8-1.0); MONOCYTES % (AUTO) 2.1 % (1.7-9.3); NEUTROPHILS # (AUTO) 22.2 K/uL (1.8-7.7); PLATELET COUNT (AUTO) 337 K/uL (140-450); RED BLOOD CELL COUNT(AUTO) 4.17 MIL/uL (4.20-6.10); RED CELL DISTRIBUTION WIDTH 13.7 % (11.6-13.7); WHITE BLOOD COUNT (AUTO) 23.2 K/uL (4.8-10.8)
[2020-10-10 06:47] LABS: MAGNESIUM 2.6 mg/dL (1.8-2.4); PHOSPHORUS 3.3 mg/dL (2.5-4.9)
[2020-10-10 06:51] LABS: ALBUMIN 1.9 g/dL (3.4-5.0); CREATININE 0.8 mg/dL (0.6-1.3); TOTAL BILIRUBIN 0.6 mg/dL (0.0-1.0)
[2020-10-10 07:09] LABS: ANION GAP 8.9 (8-16); CARBON DIOXIDE 32.1 mmol/L (21-32)
--- NOTE | 2020-10-10 07:30 | NUR ---
RECEIVED REPORT FROM CUTTER IN NURSEIFTIKHAR. PT IN BED, SUPINE, SEDATED TO RASS -3. ETT TO VENT: ACPC 85% FIO2, RR 20, PEEP 12, NO SIGNS OF ACUTE DISTRESS NOTED. OG TUBE IN PLACE, FEEDING RUNNING. CHATMAN CATHETER IN PLACE, DRAINING TO GRAVITY. SCOTTIE SOFT WRIST RESTRAINS IN PLACE, NO SIGNS OF INJURY NOTED. BAR PICC LINE, CLEAN DRY INTACT, INFUSING: PROPOFOL @ 45 MCG/KG/MIN, 5% DEXTROSE @ 75 ML/HR, FENTANYL @ 2 MCG/KG/HR. BED IN LOW POSITION, ELECTRICAL SIGN SERVICER IN PLACE, SAFETY MEASURES IN PLACE.
[2020-10-10] MEDS: FAMOTIDINE 20 MG/2 ML VIAL IV SCH ×2 (08:52→21:15)
[2020-10-10] MEDS: DEXAMETHASONE 4 MG/ML VIAL IVP SCH (08:53)
[2020-10-10] MEDS: ASPIRIN 81 MG TAB.CHEW PO SCH (08:53)
[2020-10-10] MEDS: ENOXAPARIN 120 MG/0.8 ML SYR SUBQ SCH ×2 (08:55→21:16)
--- NOTE | 2020-10-10 09:00 | NUR ---
ADMINISTERED SCHEDULED MEDS PER MD ORDER, MED EDUCATION PROVIDED, REINFORCEMENT NEEDED. OG TUBE RESIDUAL 400 ML, FLUSHED BEFORE AND AFTER MEDS. FEEDING STOPPED PER PARAMETERS. MORNING HYGIENE PROVIDED: CATHETER CARE, HCG BATH, ORAL CARE. PT REPOSITIONED AND OFFLOADED PRESSURE WITH PILLOWS. WELT ROUGHER IN PLACE. SAFETY MEASURES IN PLACE.
[2020-10-10] MEDS: fentaNYL citrate 2.5 MG in NACL 0.9% 200 ML IV PRN (09:57)
[2020-10-10] MEDS: HYDROcodone/APAP 5/325 MG 1 TAB TAB PO PRN (10:04)
--- NOTE | 2020-10-10 12:00 | NUR ---
PATIENT PLACED IN PRONE POSITION WITH RT ASSISTANCE. PRESSURE OFFLOADED WITH PILLOWS, SCOTTIE SOFT WRIST RESTRAINTS REMOVED FOR ROM EXERCISES, NO SIGNS OF INJURY NOTED.
--- NOTE | 2020-10-10 16:11 | NUR ---
VENT SETTINGS CHANGED AND CONFIRMED WITH . NEW VENT SETTINGS: PC Pinsp 20, R20, PEEP INCREASED TO 22lbB0S AND FIO2 100%. PT SPO2 NOW 90% INCREASED FROM 85%. NURSE MADE AWARE. WILL CONTINUE TO MONITOR.
--- NOTE | 2020-10-10 16:31 | NUR ---
10/10/20 RD FOLLOW UP COMPLETED PLEASE REFER TO NUTRITION ASSESSMENT UNDER CARE ACTIVITY FOR ESTIMATED NUTRITIONAL NEEDS. 1. RECOMMEND VITAL AF 1.2 @ 100 ML/HR X 8 HOURS WITH PROSOURCE BID ; FLUSH OF WATER 125 ML Q6H -THIS WILL PROVIDE 800 ML OF VOLUME, 644 ML OF WATER, 1080 KCAL AND 90 GM PRO/DAY. MEET 86% ESTIMATED ENERGY AND 85% ESTIMATED PROTEIN NEEDS PER DAY 2. RECOMMEND MULTIVITAMIN DAILY 3. RD TO FOLLOW-UP IN 2-3 DAYS PATIENT IS HIGH RISK. RENALDO MON RD
[2020-10-10] MEDS: METOCLOPRAMIDE 10 MG/2 ML INJ VIAL IVP SCH (18:58)
--- NOTE | 2020-10-10 19:20 | NUR ---
ENDORSED PATIENT TO UNIT TENDER NURSE FOR CONTINUITY OF CARE. PATIENT STABLE AT THIS TIME.
[2020-10-11] VITALS (25 sets, daily range): BP systolic 118–175; BP diastolic 61–93
[2020-10-11] MEDS: fentaNYL citrate 2.5 MG in NACL 0.9% 200 ML IV PRN ×3 (02:00→23:15)
[2020-10-11] MEDS: AZITHROMYCIN 500 MG in DEXTROSE 5% 250 ML IV SCH ×2 (06:30→19:07)
[2020-10-11 06:46] LABS: MAGNESIUM 2.1 mg/dL (1.8-2.4); PHOSPHORUS 3.8 mg/dL (2.5-4.9)
--- NOTE | 2020-10-11 07:20 | NUR ---
RECEIVED REPORT FROM SUBSTATION INSPECTOR NURSEIFTIKHAR. PT IN BED, SUPINE, SEDATED TO RASS -3. ETT TO VENT: ACPC 100% FIO2, RR 20, PEEP 14, SPO2 93%, NO SIGNS OF ACUTE DISTRESS NOTED. OG TUBE IN PLACE, FEEDING RUNNING. CHATMAN CATHETER IN PLACE, DRAINING TO GRAVITY. SCOTTIE SOFT WRIST RESTRAINS IN PLACE, NO SIGNS OF INJURY NOTED. BAR PICC LINE, CLEAN DRY INTACT, INFUSING: PROPOFOL @ 50 MCG/KG/MIN, 5% DEXTROSE @ 75 ML/HR, FENTANYL @ 2 MCG/KG/HR. BED IN LOW POSITION, INSTALLER IN PLACE, SAFETY MEASURES IN PLACE.
[2020-10-11 08:49] LABS: ANION GAP 10.4 (8-16); CARBON DIOXIDE 31.5 mmol/L (21-32); CREATININE 0.8 mg/dL (0.6-1.3); POTASSIUM 3.9 mmol/L (3.5-5.1)
[2020-10-11] MEDS: PROPOFOL 1000 MG/100 ML PREMIX 100 ML IV PRN ×4 (09:22→22:30)
[2020-10-11] MEDS: FAMOTIDINE 20 MG/2 ML VIAL IV SCH ×2 (09:25→21:00)
[2020-10-11] MEDS: ASPIRIN 81 MG TAB.CHEW PO SCH (09:26)
[2020-10-11] MEDS: DEXAMETHASONE 4 MG/ML VIAL IVP SCH (09:26)
[2020-10-11] MEDS ORDERED: ROCURONIUM 50 MG/5 ML VIAL IV ONE (12:00)
[2020-10-11] MEDS: METOCLOPRAMIDE 10 MG/2 ML INJ VIAL IVP SCH ×3 (12:00→19:08)
--- NOTE | 2020-10-11 13:29 | NUR ---
CALLED TO ROOM BY SAHRA BENITO DUE TO PT DESAT TO LOW 84% INCREASED PEEP TO 16 AND O2 SAT INCREASED TO 86%
--- NOTE | 2020-10-11 13:30 | NUR ---
WILL NOT BE PRONING PATIENT TODAY'S SHIFT. PER DISCUSSION WITH RT AND MD, DR CHILDS, HOLD PRONING FOR TODAY, CONTINUE TO MONITOR.
[2020-10-11] MEDS ORDERED: MIDAZOLAM MDV 100 MG in NACL 0.9% 80 ML IV PRN (13:50)
[2020-10-11] MEDS: ENOXAPARIN 120 MG/0.8 ML SYR SUBQ SCH ×2 (17:13→21:00)
[2020-10-11] MEDS: PROMETH/CODEINE 6.25-10MG/5ML 5 ML UDC NG SCH ×2 (17:34→21:00)
[2020-10-12] VITALS (28 sets, daily range): BP systolic 121–182; BP diastolic 56–96
[2020-10-12] MEDS ORDERED: ACETAMINOPHEN 325 MG TAB PO PRN (01:35)
[2020-10-12] MEDS: PROPOFOL 1000 MG/100 ML PREMIX 100 ML IV PRN ×5 (02:45→17:30)
[2020-10-12] MEDS: PROMETH/CODEINE 6.25-10MG/5ML 5 ML UDC NG SCH ×3 (05:00→21:00)
[2020-10-12] MEDS: AZITHROMYCIN 500 MG in DEXTROSE 5% 250 ML IV SCH (05:00)
[2020-10-12] MEDS: fentaNYL citrate 2.5 MG in NACL 0.9% 200 ML IV PRN ×2 (05:45→18:44)
[2020-10-12] MEDS: METOCLOPRAMIDE 10 MG/2 ML INJ VIAL IVP SCH ×4 (06:00→18:12)
[2020-10-12 06:30] LABS: ANION GAP 9.9 (8-16); CREATININE 1.1 mg/dL (0.6-1.3); POTASSIUM 4.9 mmol/L (3.5-5.1)
[2020-10-12 06:50] LABS: MAGNESIUM 3.1 mg/dL (1.8-2.4); PHOSPHORUS 4.9 mg/dL (2.5-4.9)
--- NOTE | 2020-10-12 07:40 | NUR ---
RECEIVED REPORT FROM CLINICAL PROFESSOR NURSE. PT IN BED SUPINE, hob elevated, AC/PC 100% P16 R20, SPO2 97%. FLACC 0, NO SOB. NO SIGNS OF ACUTE DISTRESS NOTED. CHATMAN CATHETER IN PLACE, BLADDER IRRIGATION, DRAINING TO GRAVITY. BAR PICC CLEAN DRY INTACT, INFUSING: PROPOFOL @ 50 MCG/KG/HR, FENTANYL 2 MCG. OGT TO FEEDING. PHOTOENGRAVING PRINTER IN PLACE. SAFETY MEASURES IN PLACE. ISOLATION PRECAUTION OBSERVED. WILL CONTINUE TO MONITOR
--- NOTE | 2020-10-12 07:43 | NUR ---
REC'D PT ON [place]ES[place] VENT SETTINGS PC 20 RR 20 ITIME 0.6 PEEP 16 FIO2 100% ALARMS ON AND AUDIBLE AND VENT IS PLUGGED INTO RED OUTLET, B\S ARE DIMINISHED BILATERALLY, SXN PT SMALL AMT OF BLOOD TINT SECRETIONS, PT IS ORALLY INTUBATED WITH ETT 7.5 AT 24 CM PT IS SLEEPING
[2020-10-12] MEDS: ENOXAPARIN 120 MG/0.8 ML SYR SUBQ SCH ×2 (09:00→21:00)
--- NOTE | 2020-10-12 09:00 | NUR ---
DUE MORNING MEDS GIVEN. TOLERATED WELL
[2020-10-12] MEDS: DEXAMETHASONE 4 MG/ML VIAL IVP SCH (09:33)
[2020-10-12] MEDS: ASPIRIN 81 MG TAB.CHEW PO SCH (09:33)
[2020-10-12] MEDS: FAMOTIDINE 20 MG/2 ML VIAL IV SCH ×2 (09:33→21:00)
--- NOTE | 2020-10-12 13:10 | NUR ---
CONVALESCENT PLASMA STARTED
--- NOTE | 2020-10-12 13:30 | NUR ---
SEEN BY DR CHILDS. ORDERED TO STOP BLADDER IRRIGATION
--- NOTE | 2020-10-12 14:30 | NUR ---
CONVALESCENT PLASMA TRANSFUSION DONE. NO ADVERSE REACTIONS NOTED, VSS
[2020-10-12] MEDS: PIPERACILLIN/TAZOBACTAM 4.5 GM in DEXTROSE 5% 100 ML IV SCH (18:12)
--- NOTE | 2020-10-12 19:30 | NUR ---
ASSUMED RESPONSIBILITY OF CARE AT THIS TIME. PT REPORT RECEIVED AT WINDOW, FOR CONTINUITY OF CARE. SEDATED TO RASS -3, PER MD ORDERS. PUPILS 3MM, PERRL, SLUGGISH. ETT TO VENT WITH SETTINGS FOLLOWS: ACPC: FIO2 @ 100%, PEEP 16, RT 20. LUNG SOUNDS DIMINISHED THROUGHOUT. +S1, S2 NOTED. SR ON MONITOR. OGT IN PLACE INFUSING FEEDING, PER ORDERS. ZERO RESIDUAL ASPIRATED. + PLACEMENT NOTED VIA AIR BOLUS. BOWEL SOUNDS ACTIVE X4. NO DISTENTION NOTED. CHATMAN IN PLACE DRAINING CLEAR, LIGHT TERRI URINE TO GRAVITY. BAR PICC IN PLACE INFUSING PROPOFOL AND FENTANYL ORDERED. SEE IV SPREADSHEET. SKIN WARM, DRY, AND INTACT. SAFETY PRECAUTIONS IN PLACE WITH BED LOW AND LOCKED. HOB> 30 DEGREES.
--- NOTE | 2020-10-12 21:00 | NUR ---
2100 LOVENOX HELD DUE TO HEMATURIA. AWARE.
[2020-10-13] VITALS (7 sets, daily range): BP systolic 94–173; BP diastolic 55–85
[2020-10-13] MEDS ORDERED: EPINEPHrine PFS 0.1 MG/ML SYR IVP ONE
[2020-10-13] MEDS: PROPOFOL 1000 MG/100 ML PREMIX 100 ML IV PRN (00:07)
[2020-10-13] MEDS: METOCLOPRAMIDE 10 MG/2 ML INJ VIAL IVP SCH ×3 (00:12→12:29)
[2020-10-13] MEDS: PIPERACILLIN/TAZOBACTAM 4.5 GM in DEXTROSE 5% 100 ML IV SCH ×3 (00:21→12:29)
--- NOTE | 2020-10-13 03:00 | NUR ---
PT NEEDED TO BE RE INTUBATED WITH 8.0 ETT AT 24CM @THE TEETH.
--- NOTE | 2020-10-13 03:00 | NUR ---
ERMD AT BEDSIDE TO REPLACE ETT DUE TO LEAKY CUFF. 2 RT'S AND HOUSE SUP ASSISTING.
--- NOTE | 2020-10-13 05:08 | NUR ---
CODE BLUE BEGAN AT THIS TIME. SEE CODE BLUE SHEET FOR DETAILS.
--- NOTE | 2020-10-13 05:15 | NUR ---
ROSC ACHIEVED AT THIS TIME. PT SATING 40-50% @ THIS TIME.
--- NOTE | 2020-10-13 05:30 | NUR ---
FAMILY UPDATED ON PT STATUS AT THIS TIME.
--- NOTE | 2020-10-13 06:00 | NUR ---
SON AND AT ROOM WINDOW TO VIEW PT. ALL QUESTIONS ANSWERED.
[2020-10-13] MEDS: PROMETH/CODEINE 6.25-10MG/5ML 5 ML UDC NG SCH ×2 (06:44→12:30)
--- NOTE | 2020-10-13 07:15 | NUR ---
RECEIVED PT FROM ICE SCULPTOR SAHRA PALMER S/P GHASSAN BOURNE PT NON RESPONSIVE TO PAINFUL STIMULI. CRITICALLY UNSTABLE. ON 100% FIO2 BUT PT'S O2 SAT <60. PT. CRITICALLY UNSTABLE.PAGED DR. PEÑA @ 4110 BUT NO RESPONSE. RESPONDED AND MADE HIM AWARE ABOUT PT'S UNSTABLE CONDITION AND PT'S FAMILY AWARE BUT WANTS A FULL CODE. 1050 GHASSAN BOURNE ALERTED AND STARTED EXTERNAL CARDIAC MASSAGE. AND DR. COL[place]ADO ON LEAD.ACLS MEDS GIVEN AND CODE ENDED @ 1058.LEVOPHED STARTED AND TITRATED ACCORDINGLY. GHASSAN BOURNE ALERTED 2ND TIME @ 1145 ACLS MEDS GIVEN AND STARTED EPINEPHRINE DRIP.CODE ENDED @1208.ON MAX DOSE OF LEVOPHED AND EPINEPHRINE. BUT STILL PT'S BP ON THE LOW SIDE. O2 SAT STILL ON <50%.PT'S MONITOR SHOWED ASYSTOLE AND GHASSAN BOURNE ACTIVATED.ACLS' MEDS. GIVEN BUT TO NO AVAIL. PROUNCED CLINICALLY @ 1350. PRIMARY DOCTOR NIGEL PAGED. PT'S SON INFORMED REGARDING HIS DAD' . [facility] [employer] AND CORONORS OFFICE INFORMED AND DECLINE ORGAN DONATION. POST MORTEM CARE RENDERED.
--- NOTE | 2020-10-13 07:15 | NUR ---
REPORT GIVEN TO AM NURSE AT WINDOW FOR CONTINUITY OF CARE, PICC LINE PATENT.
[2020-10-13 07:18] LABS: HEMATOCRIT 38.8 % (36-52); HEMOGLOBIN 12.1 g/dL (12.0-18.0); MEAN CORPUSCULAR HEMOGLOBIN 31 pg (27-31); MEAN CORPUSCULAR HGB CONC 31 g/dL (33-37); MEAN CORPUSCULAR VOLUME 97.5 fL (80-94); PLATELET COUNT (AUTO) 292 K/uL (140-450); RED BLOOD CELL COUNT(AUTO) 3.98 MIL/uL (4.20-6.10); RED CELL DISTRIBUTION WIDTH 13.9 % (11.6-13.7)
[2020-10-13 08:52] LABS: ALBUMIN 1.7 g/dL (3.4-5.0); ANION GAP 11.6 (8-16); CARBON DIOXIDE 33.6 mmol/L (21-32); CREATININE 1.7 mg/dL (0.6-1.3); POTASSIUM 5.2 mmol/L (3.5-5.1)
[2020-10-13 08:57] LABS: PHOSPHORUS 8.7 mg/dL (2.5-4.9)
[2020-10-13] MEDS: ENOXAPARIN 120 MG/0.8 ML SYR SUBQ SCH (09:00)
[2020-10-13] MEDS ORDERED: DOCUSATE 100 MG/10 ML UDC GT SCH (09:00)
[2020-10-13 09:32] LABS: LYMPHOCYTES % (MANUAL) 4 % (20-46); MONOCYTES % (MANUAL) 4 % (5-12); WHITE BLOOD COUNT (AUTO) 27.2 K/uL (4.8-10.8)
[2020-10-13] MEDS: ASPIRIN 81 MG TAB.CHEW PO SCH (09:56)
[2020-10-13] MEDS: DEXAMETHASONE 4 MG/ML VIAL IVP SCH (09:58)
[2020-10-13 10:35] LABS: MAGNESIUM 4.6 mg/dL (1.8-2.4)
--- NOTE | 2020-10-13 10:55 | NUR ---
CPR IN PROGRESS, SON ISABELA ESTEVEZ [phone] CALLED AND NOTIFIED OF CONDITION, SON AND FAMILY WANTS TO CONTINUE WITH FULL CODE.
--- NOTE | 2020-10-13 11:48 | NUR ---
PT BRADYCARDIA 40, THEN 30'S, NO PULSE DETECTED, CODE BLUE CALLED, CPR STARTED.
--- NOTE | 2020-10-13 11:52 | NUR ---
CPR IN PROGRESS, SON ISABELA ESTEVEZ [phone] CALLED AND NOTIFIED OF CONDITION, SON AND FAMILY WANTS TO CONTINUE WITH FULL CODE.
[2020-10-13] MEDS: FAMOTIDINE 20 MG/2 ML VIAL IV SCH (12:00)
[2020-10-13] MEDS ORDERED: EPINEPHrine 1:1000 (1 mg/mL) 1 MG in DEXTROSE 5% 250 ML IV PRN (12:00)
--- NOTE | 2020-10-13 12:11 | NUR ---
RESPONDED TO CODE AND ROSC WAS OBTAINED. WILL CONTINUE TO MONITOR
[2020-10-13] MEDS ORDERED: VASOPRESSIN 20 UNITS in NACL 0.9% 250 ML IV PRN (12:30)
[2020-10-13] MEDS ORDERED: SODIUM BICARBONATE 8.4% PFS 50 MEQ/50 ML SYR IVP ONE ×2 (12:30)
[2020-10-13] MEDS ORDERED: NOREPINEPHRINE 4 MG in DEXTROSE 5% 250 ML IV PRN (12:30)
[2020-10-13] MEDS ORDERED: CALCIUM CHLORIDE 10% 100 MG/ML SYR IVP ONE (12:30)
--- NOTE | 2020-10-13 12:46 | NUR ---
DR CHILDS AT BEDSIDE
[2020-10-13] MEDS ORDERED: SODIUM BICARBONATE 8.4% PFS 50 MEQ/50 ML SYR IVP SCH (13:00)
[2020-10-13] MEDS ORDERED: CALCIUM CHLORIDE 10% 100 MG/ML SYR IVP SCH (13:00)
--- NOTE | 2020-10-13 13:53 | NUR ---
SON ISABELA AND PT'S AT WINDOW, WITNESSED CPR, NOW DECIDED TO MAKE HIM DNR, THEY VERBALIZED FULL UNDERSTANDING OF NO MORE CPR.
--- NOTE | 2020-10-13 14:15 | NUR ---
PT NOW ASYSTOLE, NO PULSE, NO BP, DR COLORADO AT BEDSIDE, PT PRONOUNCED
--- NOTE | 2020-10-13 14:59 | NUR ---
CALL PLACE TO BREEDER SERVICE TECHNICIAN SPOKE TO DEPUTY ARACELI WILL CALL US BACK
== END 2020-10-13 14:15 | DRG 207 ==
LOC: MED 23:30 → MMU 10-03 05:01 → MTU 10-04 17:17 → MMU 10-09 04:06
PROVIDERS: ADMIT Hospitalist; ATTEND Hospitalist
PROC: XW033E5 Introduction of Remdesivir Anti-infective into Peripheral Vein, Percutaneous Approach, New Technology Group 5 (ICD-10-PCS; 2020-10-04)
PROC: 0BH17EZ Insertion of Endotracheal Airway into Trachea, Via Natural or Artificial Opening (ICD-10-PCS; principal; 2020-10-06)
PROC: 5A1955Z Respiratory Ventilation, Greater than 96 Consecutive Hours (ICD-10-PCS; 2020-10-06)
PROC: XW13325 Transfusion of Convalescent Plasma (Nonautologous) into Peripheral Vein, Percutaneous Approach, New Technology Group 5 (ICD-10-PCS; 2020-10-07)
PROC: 02HV33Z Insertion of Infusion Device into Superior Vena Cava, Percutaneous Approach (ICD-10-PCS; 2020-10-08)
PROC: 5A12012 Performance of Cardiac Output, Single, Manual (ICD-10-PCS; 2020-10-08)
PROC: 30233K1 Transfusion of Nonautologous Frozen Plasma into Peripheral Vein, Percutaneous Approach (ICD-10-PCS; 2020-10-12)
PROC: 5A12012 Performance of Cardiac Output, Single, Manual (ICD-10-PCS; 2020-10-13)
DX: U07.1 COVID-19 (principal); J12.82 Pneumonia due to coronavirus disease 2019; J96.01 Acute respiratory failure with hypoxia; I21.4 Non-ST elevation (NSTEMI) myocardial infarction; N17.0 Acute kidney failure with tubular necrosis; E87.0 Hyperosmolality and hypernatremia; E87.1 Hypo-osmolality and hyponatremia; D68.69 Other thrombophilia; Z66 Do not resuscitate; R13.10 Dysphagia, unspecified; I46.9 Cardiac arrest, cause unspecified; K76.0 Fatty (change of) liver, not elsewhere classified; E87.6 Hypokalemia; E66.9 Obesity, unspecified; Z68.38 Body mass index [BMI] 38.0-38.9, adult; Z90.49 Acquired absence of other specified parts of digestive tract
CPT/HCPCS: 36415; 36600; 71045; 74018; 80048; 80053; 80076; 82803; 83605; 83735; 83880; 84100; 84484; 85025; 85379; 86886; 86900; 86901; 87040; 87070; 87205; 93005; 94003; 96365; 99285; J0171; J0456; J0696; J1100; J1650; J2060; J2250; J2543; J2704; J2765; J3010; J3490; J7030; J7060; P9017